=== PATIENT | female | born 1970 | race Caucasian/White ===

== ENCOUNTER 2019-02-16 12:06 | Emergency (ER) | payer OTHER ==
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
[2019-02-16 13:29] VITALS: BP 133/91; TEMP 97; O2SAT 97
== END 2019-02-16 13:25 | disposition home or self-care (01) ==
LOC: ER 12:06
DX: R07.2 Precordial pain (principal); S93.421A Sprain of deltoid ligament of right ankle, initial encounter; Z88.8 Allergy status to other drugs, medicaments and biological substances; V49.59XA Passenger injured in collision with other motor vehicles in traffic accident, initial encounter; Y92.410 Unspecified street and highway as the place of occurrence of the external cause